=== PATIENT | male | born 1970 | race Caucasian/White ===

== ENCOUNTER 2017-05-11 14:22 | Outpatient (CLI) | payer OTHER ==
--- NOTE | 2017-05-11 16:27 | ULT ---
TESTICULAR ULTRASOUND: 05/11/17 HISTORY: Lump felt on right side. Real time imaging of the right and left testis were performed. Right testicle measures 3.6, left test icle 3.5 cm in length. No testicular mass. Both the right and left epididymal regions are well imaged. There is an approximately 1 cm right epid idymal cyst. DOPPLER EVALUATION WITH SPECTRAL ANALYSIS: Normal flow is shown to the testes. IMPRESSION: 1 cm right epididymal cyst. POS: BRIAN
== END 2017-05-11 14:23 | disposition home or self-care (01) ==
LOC: ULT 14:22
PROVIDERS: ATTEND Urology
DX: N45.1 Epididymitis (principal); L72.0 Epidermal cyst
CPT/HCPCS: 36415; 76870; 80048; 80061; 80076; 83036; 84443; 85025; 93976